=== PATIENT | female | born 1995 | race Caucasian/White ===

== ENCOUNTER → 2017-05-28 | Outpatient (CLI) | payer OTHER ==
[~2017-05-28] MED LIST: CEFTIN500 MG PO; NO HOME MEDICATIONS; NORCO 325 MG-51 TAB PO; PEPCID 20MG TAB20 MG PO; PRENATAL1 TA4 PO
== END ==
LOC: MC.RAD 08:20
DX: N63 Unspecified lump in breast (principal)

== ENCOUNTER → 2017-06-14 | Outpatient (CLI) | payer OTHER | LOC: MC.RAD 08:30 | DX: N63.20 Unspecified lump in the left breast, unspecified quadrant (principal) ==

== ENCOUNTER 2018-04-01 05:14 | Emergency (ER) | payer OTHER ==
[~2018-04-01] VITALS: Ht 157.5 cm; Wt 95.5 kg
[2018-04-01 05:19] VITALS: BP 127/78; TEMP 97.8
[2018-04-01 06:47] VITALS: PULSE 78
== END 2018-04-01 06:48 | disposition home or self-care (01) ==
LOC: COL.ER 05:14
DX: B34.9 Viral infection, unspecified (principal)

== ENCOUNTER 2018-08-27 10:53 | Emergency (ER) | payer OTHER ==
[~2018-08-27] VITALS: Ht 157.5 cm; Wt 97.3 kg
[2018-08-27 10:57] VITALS: TEMP 99.5
[2018-08-27 11:20] LABS: COLLECTION METHOD CLEAN CATCH
[2018-08-27 11:32] LABS: MUCOUS Present /lpf; PH 5 (5-8); URINE APPEARANCE Hazy; URINE BACTERIA None Seen /hpf; URINE BILIRUBIN Negative (NEGATIVE); URINE BLOOD Negative (NEGATIVE); URINE COLOR Yellow; URINE GLUCOSE Negative (NEGATIVE); URINE KETONE Negative (NEGATIVE); URINE LEUKOCYTE ESTERASE Trace (NEGATIVE); URINE NITRATE Negative (NEGATIVE); URINE PROTEIN(semi-quant) Negative (NEGATIVE); URINE RBC 0-2 /hpf; URINE UROBILINOGEN Negative (NEGATIVE)
[2018-08-27 11:40] LABS: BASO # 0.1 (0.0-0.2); BASO % 0.4 % (0.0-2.0); EOS # 0.1 (0.0-0.7); EOS % 0.7 % (0-4.0); GRAN # 11.5 (1.4-6.5); GRAN % 77.4 % (42.2-75.2); HEMATOCRIT 39.3 % (37.0-47.0); HEMOGLOBIN 13.2 g/dl (12.5-16.0); LYMPH # 2.2 (1.2-3.4); LYMPH % 14.6 % (20.0-51.0); MEAN CELL VOLUME 85 fl (80.0-100.0); MEAN CORPUSCULAR HEMOGLOBIN 29 pg (27.0-31.0); MEAN CORPUSCULAR HGB CONC 34 g/dl (33.0-37.0); MONO # 0.8 (0.1-0.6); MONO % 5.6 % (1.7-9.3); PLATELET COUNT 349 K/mm3 (130-400); RED BLOOD COUNT 4.62 M/mm3 (4.10-5.30); REDCELL DISTRIBUTION WIDTH-CV 13.2 % (11.5-14.5)
[2018-08-27 11:53] LABS: ALBUMIN 3.7 gm/dL (3.5-5.0); BILIRUBIN,TOTAL 0.5 mg/dL (0.0-1.0); CALCIUM 8.9 mg/dL (8.4-10.2); CREATININE, serum 0.59 mg/dL (0.52-1.25)
[2018-08-27] MEDS ORDERED: ZOFRAN 4MG T4 MG/TAB PO (15:19)
[2018-08-27] MEDS ORDERED: FLAGYL500 MG PO (15:19)
[2018-08-27] MEDS ORDERED: NORCO 325 MG-51 TAB PO (15:27)
[2018-08-27 15:36] VITALS: BP 121/70; PULSE 90
== END 2018-08-27 15:38 | disposition home or self-care (01) ==
LOC: COL.ER 10:53
PROVIDERS: Physician Assistant
DX: R10.32 Left lower quadrant pain (principal); A56.09 Other chlamydial infection of lower genitourinary tract; N76.0 Acute vaginitis; B96.89 Other specified bacterial agents as the cause of diseases classified elsewhere; Z90.49 Acquired absence of other specified parts of digestive tract
CPT/HCPCS: J1885; J2270; J2405; J7030; Q9967

== ENCOUNTER 2018-11-11 22:11 | Emergency (ER) | payer OTHER ==
[~2018-11-11] VITALS: Ht 157.5 cm; Wt 100.0 kg
[~2018-11-11 22:11] MED LIST changes: +FLAGYL500 MG PO; +ZOFRAN 4MG T4 MG/TAB PO
[2018-11-11 22:17] VITALS: TEMP 99.9
[2018-11-12 00:17] LABS: BASO % 0.3 % (0.0-2.0); EOS # 0.1 (0.0-0.7); EOS % 0.4 % (0-4.0); GRAN # 11.7 (1.4-6.5); GRAN % 85.9 % (42.2-75.2); HEMATOCRIT 44.2 % (37.0-47.0); HEMOGLOBIN 14.6 g/dl (12.5-16.0); LYMPH # 1.2 (1.2-3.4); LYMPH % 9.1 % (20.0-51.0); MEAN CELL VOLUME 86 fl (80.0-100.0); MEAN CORPUSCULAR HEMOGLOBIN 28 pg (27.0-31.0); MEAN CORPUSCULAR HGB CONC 33 g/dl (33.0-37.0); MEAN PLATELET VOLUME 9.8 fl (7.4-10.4); MONO # 0.6 (0.1-0.6); PLATELET COUNT 365 K/mm3 (130-400); RED BLOOD COUNT 5.15 M/mm3 (4.10-5.30); REDCELL DISTRIBUTION WIDTH-CV 13.5 % (11.5-14.5)
[2018-11-12 00:30] LABS: ALBUMIN 4.4 gm/dL (3.5-5.0); BILIRUBIN,TOTAL 0.8 mg/dL (0.0-1.0); C-REACTIVE PROTEIN 1.3 mg/dL (0.0-0.9); CALCIUM 8.9 mg/dL (8.4-10.2); CREATININE, serum 0.61 mg/dL (0.52-1.25); POTASSIUM 3.9 mmol/L (3.4-5.0); TOTAL PROTEIN 8.2 gm/dL (6.4-8.2)
[2018-11-12 00:56] LABS: COLLECTION METHOD CLEAN CATCH
[2018-11-12 01:02] LABS: PH 8 (5-8); SQUAMOUS EPITHELIAL 0-2 /hpf; URINE APPEARANCE Clear; URINE BACTERIA None Seen /hpf; URINE BILIRUBIN Negative (NEGATIVE); URINE BLOOD Negative (NEGATIVE); URINE COLOR Yellow; URINE GLUCOSE Negative (NEGATIVE); URINE KETONE Negative (NEGATIVE); URINE LEUKOCYTE ESTERASE Negative (NEGATIVE); URINE NITRATE Negative (NEGATIVE); URINE PROTEIN(semi-quant) Negative (NEGATIVE); URINE RBC 0-2 /hpf
[2018-11-12] MEDS ORDERED: ZOFRAN ODT4 MG PO (02:13)
[2018-11-12 02:41] VITALS: BP 103/74; PULSE 97
== END 2018-11-12 02:42 | disposition home or self-care (01) ==
LOC: COL.ER 22:11
PROVIDERS: Nurse Practitioner
DX: R19.7 Diarrhea, unspecified (principal); R11.2 Nausea with vomiting, unspecified; Z90.49 Acquired absence of other specified parts of digestive tract
CPT/HCPCS: J1885; J2405; J7030

== ENCOUNTER → 2018-12-31 | Outpatient (CLI) | payer OTHER ==
[~2018-12-31] MED LIST changes: +ZOFRAN ODT4 MG PO
== END ==
LOC: COL.RAD 13:15
DX: R89.1 Abnormal level of hormones in specimens from other organs, systems and tissues (principal)
CPT/HCPCS: A9585

== ENCOUNTER 2019-08-18 22:27 | Emergency (ER) | payer OTHER ==
[~2019-08-18] VITALS: Ht 157.5 cm; Wt 89.5 kg
[2019-08-18 22:36] VITALS: TEMP 98.3
[2019-08-18] MEDS ORDERED: PRENATAL TABLET PO (22:58)
[2019-08-18] MEDS ORDERED: ZOFRAN ODT4 MG PO (23:16)
[2019-08-18 23:17] LABS: COLLECTION METHOD CLEAN CATCH
[2019-08-18 23:21] LABS: BASO % 0.2 % (0.0-2.0); EOS # 0.1 (0.0-0.7); EOS % 0.5 % (0-4.0); GRAN % 72.3 % (42.2-75.2); HEMATOCRIT 37.2 % (37.0-47.0); HEMOGLOBIN 12.3 g/dl (12.5-16.0); LYMPH # 2.6 (1.2-3.4); LYMPH % 21.1 % (20.0-51.0); MEAN CELL VOLUME 86 fl (80.0-100.0); MEAN CORPUSCULAR HEMOGLOBIN 28 pg (27.0-31.0); MEAN CORPUSCULAR HGB CONC 33 g/dl (33.0-37.0); MEAN PLATELET VOLUME 10.1 fl (7.4-10.4); MONO # 0.7 (0.1-0.6); MONO % 5.7 % (1.7-9.3); PLATELET COUNT 299 K/mm3 (130-400); RED BLOOD COUNT 4.35 M/mm3 (4.10-5.30); REDCELL DISTRIBUTION WIDTH-CV 13.5 % (11.5-14.5)
[2019-08-18 23:32] LABS: MUCOUS Present /lpf; PH 6 (5-8); SQUAMOUS EPITHELIAL 0-2 /hpf; URINE APPEARANCE Clear; URINE BACTERIA Rare /hpf; URINE BILIRUBIN Negative (NEGATIVE); URINE BLOOD Negative (NEGATIVE); URINE COLOR Yellow; URINE GLUCOSE Negative (NEGATIVE); URINE KETONE 1+ (NEGATIVE); URINE LEUKOCYTE ESTERASE Negative (NEGATIVE); URINE NITRATE Negative (NEGATIVE); URINE PROTEIN(semi-quant) Negative (NEGATIVE); URINE RBC 0-2 /hpf; URINE UROBILINOGEN Negative (NEGATIVE)
[2019-08-18 23:36] LABS: ALBUMIN 4.2 gm/dL (3.5-5.0); BILIRUBIN,TOTAL 0.5 mg/dL (0.0-1.0); CALCIUM 9.4 mg/dL (8.4-10.2); CREATININE, serum 0.48 (0.52-1.25); POTASSIUM 3.5 mmol/L (3.4-5.0); TOTAL PROTEIN 7.7 gm/dL (6.4-8.2)
[2019-08-18] MEDS ORDERED: CEPHALEXIN500 M1 PO (23:45)
[2019-08-19 01:32] VITALS: BP 102/62; PULSE 76
== END 2019-08-19 01:45 | disposition home or self-care (01) ==
LOC: COL.ER 22:27
PROVIDERS: Emergency Medicine
DX: O23.42 Unspecified infection of urinary tract in pregnancy, second trimester (principal); R82.71 Bacteriuria; O21.9 Vomiting of pregnancy, unspecified; Z3A.16 16 weeks gestation of pregnancy
CPT/HCPCS: J1200; J2405; J2765; J7030

== ENCOUNTER 2019-11-03 11:42 | Outpatient (CLI) | payer OTHER ==
[~2019-11-03] VITALS: Ht 157.5 cm; Wt 89.5 kg
[~2019-11-03 11:42] MED LIST changes: +CEPHALEXIN500 M1 PO; +PRENATAL TABLET PO
--- NOTE | 2019-11-03 11:50 | NUR ---
Pt arrives on unit ambulatory. States ctx that began at 0330 and were q 30-45 minutes but subsided with hydration. Ctx started again at 0700 and have been approximately q 15-30 minutes. Denies LOF, vaginal bleeding, and reports GFM. Changed into a clean gown. EFM and toco applied. VSS. SVE per this RN closed/soft. Admission assessment completed. Dr. Benoit notified. See physician notification. 1205-IV started in LH. LR bolus infusing. Pt tolerating well.
[2019-11-03 12:46] VITALS: BP 114/77; PULSE 86; TEMP 97.6
--- NOTE | 2019-11-03 12:55 | NUR ---
LR bolus infused. SVE unchanged. Reactive FHR strip obtained. Pt taken off monitors. PTL instructions given. Pt verbalizes understanding. INT d/c. Leaves unit ambulatory with FOB.
== END 2019-11-03 13:00 | disposition home or self-care (01) ==
LOC: LDRO 11:42
DX: O62.9 Abnormality of forces of labor, unspecified (principal); Z3A.26 26 weeks gestation of pregnancy
CPT/HCPCS: J7120

== ENCOUNTER 2020-01-27 14:25 | Outpatient (CLI) | payer OTHER ==
[~2020-01-27] VITALS: Ht 157.5 cm; Wt 91.4 kg
--- NOTE | 2020-01-27 14:20 | NUR ---
Pt here with c/o SROM last evening. Pt to [facility], explained. 38.5 weeks gestation, G5L2. Pt states feeling more fluid this AM at work. SVE: 1-2/-3, amniotrace negative and no fluid noted on exam glove. Assessment complete. Pt states baby is active, denies any vaginal bleeding or feeling any contractions. States having some irregular cramping over the past 2 days. FHR reactive, contractions tracing every 2-4 minutes, pt denies feeling them. Dr Benoit called and updated. DC home at this time. have pt f/u saturday at scheduled appointment. 1500:Discharge instructions given, pt verbalizes understanding. No further questions.
[2020-01-27 14:33] VITALS: BP 122/69; PULSE 97; TEMP 98.1
[2020-01-27] MEDS ORDERED: TYLENOL 325MG325 MG PO (14:37)
== END 2020-01-27 15:05 | disposition home or self-care (01) ==
LOC: LDRO 14:25
DX: Z34.93 Encounter for supervision of normal pregnancy, unspecified, third trimester (principal); Z3A.38 38 weeks gestation of pregnancy

== ENCOUNTER → 2020-06-24 | Outpatient (CLI) | payer OTHER ==
[~2020-06-24] MED LIST changes: +IBU600 MG PO; +PERCOCET 325 MG1 TA2 PO; +TYLENOL 325MG325 MG PO
== END ==
LOC: COL.RAD 06-16 14:00
DX: D35.2 Benign neoplasm of pituitary gland (principal)
CPT/HCPCS: A9585

== ENCOUNTER 2021-04-02 14:50 | Outpatient (CLI) | payer OTHER ==
[~2021-04-02] VITALS: Ht 157.5 cm; Wt 95.7 kg
--- NOTE | 2021-04-02 14:55 | NUR ---
Patient ambulates to LR5 with significant other, changed into gown, FHR/TOCO monitors placed and explained. Patient states she started having contractions around 0900 this am and they have gotten closer/stronger. Denies any leaking of fluid/vaginal bleeding/decreased movement. Plan of care discussed. 1500: SVE per Chelsie RN-//-2 Dr. Robin update-see physician notification.
[2021-04-02 15:30] VITALS: BP 111/77; PULSE 83
--- NOTE | 2021-04-02 16:05 | NUR ---
Recheck- and patient given discharge instructions. 1607: Off monitors and signs papers. 1615: Ambulates off unit with significant other
[2021-04-02 16:07] VITALS: BP 102/62; PULSE 80
== END 2021-04-02 16:15 | disposition home or self-care (01) ==
LOC: LDRO 14:50 → LDR 15:14 → LDRO 16:15
DX: O62.9 Abnormality of forces of labor, unspecified (principal); Z3A.40 40 weeks gestation of pregnancy
CPT/HCPCS: OP

== ENCOUNTER 2021-04-02 20:31 | Inpatient (IN) | payer OTHER ==
[~2021-04-02] VITALS: Ht 157.5 cm; Wt 96.4 kg
--- NOTE | 2021-04-02 20:40 | NUR ---
G6L3 at 40 weeks and 5 days arrives to unit with complaint of worsening contractions. Pt was a labor check earlier in the day and was sent home after not dilating past a 4. Pt states contractions have gotten worse. Denies LOF. Reports good movement. Has had some spotting today. Denies headaches, blurry vision or RUQ pain. Clean gown on. Oriented to room, bed in low and locked position, call light within reach. US and toco explained and applied. Vital signs obtained. Admission assessment started. SVE 4/80/-3, vertex position, membranes felt on exam.
[2021-04-02 21:00] VITALS: BP 121/88; PULSE 90; TEMP 98.8
--- NOTE | 2021-04-02 21:55 | NUR ---
SVE unchanged from previous exam but patient appears to be in a lot of pain. Pt would like to do additional hour labor check and be able to be off monitors and walk around room. Monitors off at this time.
--- NOTE | 2021-04-02 22:40 | NUR ---
18g IV started in left forearm with 1 attempt. Admission labs obtained off IV start. Lactated ringers infusing to gravity. Shabana Maldonado RN at bedside at this time, bedside report given.
[2021-04-02 23:00] VITALS: BP 130/74; PULSE 83
[2021-04-02 23:12] LABS: BASO % 0.2 % (0.0-2.0); EOS # 0.1 (0.0-0.7); EOS % 0.5 % (0-4.0); GRAN # 7.3 (1.4-6.5); GRAN % 67.2 % (42.2-75.2); HEMATOCRIT 37.6 % (37.0-47.0); HEMOGLOBIN 12.1 g/dl (12.5-16.0); LYMPH # 2.7 (1.2-3.4); LYMPH % 24.7 % (20.0-51.0); MEAN CELL VOLUME 81 fl (80.0-100.0); MEAN CORPUSCULAR HEMOGLOBIN 26 pg (27.0-31.0); MEAN CORPUSCULAR HGB CONC 32 g/dl (33.0-37.0); MONO # 0.8 (0.1-0.6); PLATELET COUNT 316 K/mm3 (130-400); RED BLOOD COUNT 4.66 M/mm3 (4.10-5.30); REDCELL DISTRIBUTION WIDTH-CV 15.3 % (11.5-14.5)
--- NOTE | 2021-04-02 23:24 | NUR ---
PT ASSISTED TO EDGE OF BED, PULSE OXIMETER ON FINGER, BOLUS OF LR INFUSING PER PROTOCOL, CIARRA GARRETT REVIEWS AND EDUCATES PT REGARDING EPIDURAL PLACEMENT, PT AGREEABLE TO POC. DIFFICULTY TRACING EFM/TOCO DUE TO MATERNAL POSITIONING. CONTRACTIONS PALPATED Q1-2MIN THROUGHOUT THIS ENCOUNTER. 2324: TEST DOSE ADMINISTERED PER CIARRA GARRETT, PT TOLERATED PROCEDURE WELL
[2021-04-02 23:30] VITALS: BP 138/93; PULSE 107; TEMP 97.8
[2021-04-02 23:57] VITALS: TEMP 98
[2021-04-03] VITALS (15 sets, daily range): BP systolic 100–148; BP diastolic 60–89; PULSE 70–129; TEMP 97.4–98.4
--- NOTE | 2021-04-03 | NUR ---
0000: SROM/MECONIUM FLUID, AMNISURE TEST CONFIRMS RUPTURE OF AMNIOTIC FLUID, PT TENSE AND FEELING "INCREASED PRESSURE" 0007: SVE COMPLETE, NOTIFIED , SEE PROVIDER NOTIFICATION 0022: SPONTANEOUS VAG DELIVERY OF MALE HEAD 0022: SPONTANEOUS VAG DELIVERY OF VIABLE MALE , CORD CLAMPED X2, CUT BY FOB, PLACED ON MATERNAL ABDOMEN, PHIL GONZALEZ RN ASSUMES CARE OF AT THIS TIME 0024: SPONTANEOUS DELIVERY OF PLACENTA PER , PITOCIN INFUSING AT 333ML/HR PER PROTOCOL, PT IS INTACT, LOCHIA WNL, FUNDUS FIRM AT UMBILICUS. WILL CONTINUE WITH RECOVERY PER PROTOCOL.
--- NOTE | 2021-04-03 02:55 | NUR ---
0255: PT REPORTS FULL FEELING TO BLE, ABLE TO RAISE AND HOLD FOR 5 SECONDS APPROPRIATELY. AMBULATORY TO WHEELCHAIR WITH SBA. STEADY GAIT NOTED, ASSISTED TO RESTROOM. MICHAEL CARE PROVIDED. PAD CHANGED/FRESH UNDERWEAR/FRESH GOWN ON. LOCHIA WNL. NO CLOTS. VOIDED 500CC AT THIS TIME. EPIDURAL CATHETER REMOVED FROM BACK, AREA CLEANSED AND BADAGE PLACED PER PROTOCOL. 0300: PT TO ROOM #[id number] VIA WHEELCHAIR TO CONTINUE CARES.
--- NOTE | 2021-04-03 10:09 | NUR ---
Initial visit; Parents thanked [employer]er for offering congratulations and God's blessings for the of their son. [employer]er thanked family for choosing [facility].
[2021-04-04 02:00] VITALS: BP 110/70; PULSE 80; TEMP 98.3
[2021-04-04 07:17] VITALS: BP 124/63; PULSE 72; TEMP 97.9
[2021-04-04 08:02] VITALS: BP 100/54; PULSE 71; TEMP 97.8
[2021-04-04] MEDS ORDERED: IBU600 MG PO (11:03)
[2021-04-04] MEDS ORDERED: PERCOCET 325 MG1 TA2 PO (11:03)
== END 2021-04-04 11:50 | disposition home or self-care (01) | DRG 807 ==
LOC: LDRO 20:31 → LDR 21:09 → LDRO 22:14 → LDR 22:15 → OB 22:15
PROVIDERS: Obstetrics & Gynecology; ADMIT Obstetrics & Gynecology
PROC: 10E0XZZ Delivery of Products of Conception, External Approach (ICD-10-PCS; principal; 2021-04-03)
DX: O48.0 Post-term pregnancy (principal); Z37.0 Single live birth; Z3A.40 40 weeks gestation of pregnancy; O99.214 Obesity complicating childbirth; E66.9 Obesity, unspecified; O99.344 Other mental disorders complicating childbirth; F32.9 Major depressive disorder, single episode, unspecified; F41.9 Anxiety disorder, unspecified; O77.0 Labor and delivery complicated by meconium in amniotic fluid
CPT/HCPCS: J2400; J2590; J2795; J7120

== ENCOUNTER → 2021-06-30 | Outpatient (CLI) | payer OTHER | LOC: COL.RAD 06-20 12:00 | DX: R22.1 Localized swelling, mass and lump, neck (principal) ==

== ENCOUNTER → 2022-04-12 | Outpatient (CLI) | payer BC | LOC: COL.RAD 10:13 | DX: D35.2 Benign neoplasm of pituitary gland (principal) | CPT/HCPCS: A9575 ==